=== PATIENT | male | born 1930 | race Caucasian/White ===

== ENCOUNTER 2020-07-30 16:10 | Emergency (ER) | payer MEDICARE, OTHER ==
[2020-07-30 17:28] LABS: BASOPHILS % (AUTO) 0.3 % (0.0-5.0); EOSINOPHILS % (AUTO) 2.3 % (0.0-8.0); HEMATOCRIT 34.9 % (42-54); LYMPHOCYTES % (AUTO) 17.5 % (21.0-51.0); MEAN CORPUSCULAR HEMOGLOBIN 31.5 pg (27.0-33.0); MEAN CORPUSCULAR HGB CONC 34.4 g/dL (32.0-36.0); MEAN CORPUSCULAR VOLUME 91.6 fL (79-99); MONOCYTES % (AUTO) 15.1 % (3.0-13.0); NEUTROPHILS % (AUTO) 64.5 % (40.0-77.0); PLATELET COUNT (AUTO) 177 K/uL (130-400); RED BLOOD CELL COUNT(AUTO) 3.81 MIL/uL (4.50-6.20); RED CELL DISTRIBUTION WIDTH 12.6 % (11.0-15.5); WHITE BLOOD COUNT (AUTO) 7.9 K/uL (4.8-10.8)
[2020-07-30] MEDS ORDERED: FAMOTIDINE 20MG VIAL IV ONE (17:52)
[2020-07-30] MEDS ORDERED: 0.9%NACL 1000ML 1,000 ML IV ONE (17:52)
[2020-07-30 18:01] LABS: APPEARANCE,URINE Clear (CLEAR); BILIRUBIN,URINE Negative (NEGATIVE); COLOR,URINE Dark Yellow (YELLOW); GLUCOSE, URINE (UA) 250 mg/dL (NEGATIVE); KETONES,URINE Trace mg/dL (NEGATIVE); LEUKOCYTE ESTERASE ,URINE Trace (NEGATIVE); NITRATE,URINE Negative (NEGATIVE); OCCULT BLOOD,URINE Negative (NEGATIVE); PROTEIN,URINE Trace mg/dL (NEGATIVE)
[2020-07-30 18:44] LABS: RBC,URINE 0-1 /HPF (0-1)
[2020-07-30 18:45] LABS: BACTERIA,URINE Few /HPF (None Seen)
[2020-07-30 18:52] LABS: SQUAMOUS EPITHELIAL CELL,UR Rare /HPF (0-2)
[2020-07-30 19:22] LABS: CREATININE 1.4 mg/dL (0.5-1.5); POTASSIUM 4.3 mmol/L (3.5-5.1)
[2020-07-30 19:27] LABS: ALBUMIN 3.2 g/dL (3.5-5.0); BILIRUBIN,TOTAL 0.5 mg/dL (0.2-1.0); TOTAL PROTEIN, SERUM 6.4 g/dL (6.0-8.3)
== END 2020-07-30 19:39 | disposition home or self-care (01) ==
LOC: EDH 16:10
DX: K52.89 Other specified noninfective gastroenteritis and colitis (principal); E86.0 Dehydration; Z20.828 Contact with and (suspected) exposure to other viral communicable diseases; E11.9 Type 2 diabetes mellitus without complications; Z87.891 Personal history of nicotine dependence
CPT/HCPCS: 36415; 71045; 80053; 81001; 83605; 84145; 84484; 85025; 87040 ×2; 87426; 87804 ×2; 87880; 93005; 96365; 99285; J3490; J7030